=== PATIENT | male | born 1960 | race Caucasian/White ===

== ENCOUNTER 2018-04-09 09:26 | Emergency (ER) | payer OTHER ==
[2018-04-09 09:42] VITALS: BP 137/86
[2018-04-09] MEDS ORDERED: Lidocaine 2% VISCOUS* 15 ML UDC PO ONE (09:45)
[2018-04-09] MEDS ORDERED: Al Hydrox/Mg Hydrox/Simet LIQ* 30 ML UDC PO ONE (09:46)
[2018-04-09] MEDS ORDERED: Al Hydrox/Mg Hydrox/Simet LIQ* 30 ML UDC ONE (09:47)
[2018-04-09] MEDS ORDERED: Lidocaine 2% VISCOUS* 15 ML UDC ONE (09:47)
--- NOTE | 2018-04-09 10:07 | UC ---
Abdominal Pain Male HPI - HPI Summary HPI Summary: 57 yo with hx of severe heartburn, worse at night when supine, c/o 3 day history. 8/10 at night; 3/10 now here, sitting. Location: lower substernal and over stomach. Intensity: 5-8/10. Improves with sitting; worse with supine. Quality: Burning. Denies CVD hx in self, or immediate family although there is a hx of high blood pressure. Denies N/V, sweating, tingling, discomfort radiation. Described as burning pain, lower substernal. Non-radiating. - History of Current Complaint Chief Complaint: UCChestPain Stated Complaint: HEARTBURN Time Seen by Provider: 04/09/18 09:42 Pain Intensity: 4 - Allergies/Home Medications Allergies/Adverse Reactions: Allergies Allergy/AdvReac Type Severity Reaction Status Date / Time No Known Allergies Allergy Verified 04/09/18 09:42 Home Medications: Home Medications Calcium Carbonate [Tums] 500 mg PO 04/09/18 [History] raNITIdine HCl [Zantac 75] 75 mg PO 04/09/18 [History] sulfADIAZINE (NF) [SulfADIAZine (NF)] 1,000 mg PO BID 04/09/18 [History Confirmed 04/09/18] PMH/Surg Hx/FS Hx/Imm Hx - Additional Past Medical History Additional PMH: Visit hx: non contributory PMH: on medication for RA, causes heartburn Tried Prilosec but no longer taking it. Had bowel operation 3 years ago because of ischemia. 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 - Social History Alcohol Use: None Substance Use Type: None Smoking Status (MU): Never Smoked Tobacco Review of Systems All Other Systems Reviewed And Are Negative: Yes Constitutional: Positive: Negative Skin: Positive: Negative Eyes: Positive: Negative ENT: Positive: Negative Respiratory: Positive: Negative Cardiovascular: Positive: Negative Gastrointestinal: Positive: Abdominal Pain - lower substernal; LUQ, non radiating. Negative: Vomiting, Diarrhea, Nausea Genitourinary: Positive: Negative Motor: Positive: Negative Neurovascular: Positive: Negative Musculoskeletal: Positive: Negative Neurological: Positive: Negative Psychological: Positive: Negative Physical Exam - Summary Physical Exam Summary: Appearance: The patient is in mild pain from upper abdomen. Otherwise, well- appearing,well-nourished. Eyes: Conjunctiva are clear. Pupils are equal and reactive to light and accommodation. Extraocular muscle movement is intact. ENT: The hearing is grossly normal, the pharynx is normal, and the TMs are normal. There is no muffled or hoarse voice. No stridor. Neck: The neck is supple and there is no lymphadenopathy. Respiratory: The chest is nontender to palpation and without crepitus. The lungs are clear, there are normal breath sounds, and there is no respiratory distress. No wheezes, rales or rhonchi. Cardiovascular: Heart sounds reveal a regular rate and rhythm. There are no clicks, rubs or murmurs. There are no carotid bruits or thrills. Circulation is grossly intact. Abdomen: The abdomen is soft and nontender. There is no organomegaly. Bowel sounds are present and within normal limits. No point tenderness at McBurneys point. Pain is localized to lower sternum and over the stomach. Musculoskeletal: Strength is intact. The patient moves all extremities. Neurological: The patient is alert. Motor and sensory examination grossly intact. Speech is normal. Psychological: The patient displays age appropriate behavior. Oriented to person , place and time. Skin: Negative for rashes. Vital Signs: Initial Vital Signs Temp 98.9 F 04/09/18 09:32 Pulse 82 04/09/18 09:32 Resp 18 04/09/18 09:32 BP 137/86 04/09/18 09:32 Pulse Ox 97 04/09/18 09:32 Abd Pain Male Course/Dx - Course Course Of Treatment: 57 yo with hx of RA and GERD because of RA medication, c/o significant upper quadrant, left, and lower substernal burning pain. EKG shows no acute ischemia. No acute abdomen. Given mylanta and viscous lidocaine and patient was much improved. Dx: GERD but patient knows he needs to follow up to be evaluated for peptic disease. - Differential Dx/Clinical Impression Differential Diagnosis/HQI/PQRI: Gall Bladder Disease, Peptic Ulcer Disease Provider Diagnosis: GERD (gastroesophageal reflux disease) Discharge - Sign-Out/Discharge Documenting (check all that apply): Patient Departure All imaging exams completed and their final reports reviewed: No Studies - Discharge Plan Condition: Stable Disposition: HOME Prescriptions: Lidocaine 2% VISCOUS* 5 ml MT BID #1 btl MDD 5 tsp a day Omeprazole CAP* [Prilosec CAP* 20 MG] 20 mg PO DAILY #20 cap.dr GUERRA 1 Patient Education Materials: Antacid, Calcium Containing (By mouth), Gastroesophageal Reflux Disease (DC) Referrals: No Primary Care Phys,NOPCP [Primary Care Provider] - Additional Instructions: WE DISCUSSED: DIAGNOSIS: is GERD; Excess acid; you could also have Gastritis or an ulcer. Follow up with your doctor. Take antacid, prilosec, viscous lidocaine. Sleep with head of bed elevated. Go to ED for increased pain or new symptoms. - Billing Disposition and Condition Condition: STABLE Disposition: Home
== END 2018-04-09 10:58 | disposition home or self-care (01) ==
LOC: UCEAST 09:26
DX: K21.9 Gastro-esophageal reflux disease without esophagitis (principal)
CPT/HCPCS: 93005; 99202; A9270-GY; G0463